=== PATIENT | female | born 1930 | race Caucasian/White ===

== ENCOUNTER → 2017-01-11 | Outpatient (CLI) | payer MEDICARE, OTHER | LOC: OD 17:17 | PROVIDERS: ATTEND Podiatrist Foot Surgery | DX: L02.612 Cutaneous abscess of left foot (principal) | CPT/HCPCS: 87070; 87075; 87077; 87186; 87205 ==

== ENCOUNTER 2017-06-04 16:46 | Observation (INO) | payer MEDICARE, OTHER ==
[2017-06-04 17:46] LABS: ABSOLUTE BASOPHILS # (AUTO) 0.1 10^3/uL (0.0-0.2); ABSOLUTE EOSINOPHILS # (AUTO) 0.4 10^3/uL (0.0-0.6); ABSOLUTE LYMPHOCYTES (AUTO) 2.3 10^3/uL (0.5-4.7); ABSOLUTE MONOCYTES (AUTO) 0.9 10^3/uL (0.1-1.4); EOSINOPHILS % (AUTO) 3.4 % (0-6); HEMATOCRIT 40.4 % (36.0-47.0); HEMOGLOBIN 12.6 g/dL (12.0-15.5); HGB HCT DIFFERENCE -2.6; LYMPHOCYTES % (AUTO) 19.4 % (13-45); MEAN CORPUSCULAR HEMOGLOBIN 27.3 pg (27.0-33.4); MEAN CORPUSCULAR HGB CONC 31.3 g/dL (32.0-36.0); MEAN CORPUSCULAR VOLUME 88 fl (80-97); MONOCYTES % (AUTO) 7.7 % (3-13); RED BLOOD COUNT 4.62 10^6/uL (3.72-5.28); RED CELL DISTRIBUTION WIDTH 15.3 % (11.5-14.0); SEGMENTED NEUTROPHILS % (AUTO) 68.5 % (42-78); WHITE BLOOD COUNT 11.7 10^3/uL (4.0-10.5)
[2017-06-04 18:01] LABS: ALANINE AMINOTRANSFERASE 18 U/L (9-52); ALBUMIN 4.2 g/dL (3.5-5.0); ALKALINE PHOSPHATASE 107 U/L (38-126); ANION GAP 15 (5-19); ASPARTATE AMINO TRANSFERASE 18 U/L (14-36); BILIRUBIN,DIRECT 0.3 mg/dL (0.0-0.4); BILIRUBIN,TOTAL 0.6 mg/dL (0.2-1.3); BLOOD UREA NITROGEN 20 mg/dL (7-20); CALCIUM 9.9 mg/dL (8.4-10.2); CARBON DIOXIDE 22 mmol/L (22-30); CHLORIDE 105 mmol/L (98-107); CREATININE RESULT 1.06 mg/dL (0.52-1.25); GLUCOSE 102 mg/dL (75-110); SODIUM 141.7 mmol/L (137-145); TOTAL PROTEIN 8.1 g/dL (6.3-8.2)
--- NOTE | 2017-06-04 19:41 | PDOC H&P ---
History of Present Illness Admission Date/PCP: 06/04/17 16:46 ABI SILVA DPM History of Present Illness: SAVANA GRIMM is a 86 year old female, she came to the office today for evaluation of redness, swelling of the left lower extremity. She has peripheral vascular disease, she recently underwent atherectomy and angioplasty of the left femoral arterial system. In the office she was evaluated I did not appreciate the pedal pulses she was admitted for evaluation, a stat arterial Doppler was done, Doppler showed adequate arterial doppler flow and there was no need for immediate intervention at this time Past Medical History Cardiac Medical History: Reports: Coronary Artery Disease, Hyperlipidema, Hypertension, Peripheral Vascular Disease Pulmonary Medical History: Reports: Bronchitis - 10 yrs ago, Chronic Obstructive Pulmonary Disease (COPD), Pneumonia - in 2006 GI Medical History: Reports: Gastroesophageal Reflux Disease Musculoskeltal Medical History: Reports: Arthritis Hematology: Denies: Anemia Past Surgical History Past Surgical History: Reports: Cardiac Catheterization - Cardiac stents, Cholecystectomy, Orthopedic Surgery - bilateral carpal tunnel Social History Smoking Status: Former Smoker Frequency of Alcohol Use: Occasional Hx Recreational Drug Use: No Drugs: None Hx Prescription Drug Abuse: No Family History Family History: Reviewed & Not Pertinent Parental Family History Reviewed: Yes Children Family History Reviewed: Yes Sibling(s) Family History Reviewed.: Yes Medication/Allergy Allergies/Adverse Reactions: acetaminophen [From Vicodin] Allergy (Verified 04/07/16 08:36) atorvastatin calcium [From Lipitor] Allergy (Verified 04/07/16 08:37) hydrocodone bitartrate [From Vicodin] Allergy (Verified 04/07/16 08:36) Review of Systems Constitutional: ABSENT: chills, fever(s), headache(s), weight gain, weight loss Eyes: ABSENT: visual disturbances Ears: ABSENT: hearing changes Cardiovascular: ABSENT: chest pain, dyspnea on exertion, edema, orthropnea, palpitations Respiratory: ABSENT: cough, hemoptysis Gastrointestinal: ABSENT: abdominal pain, constipation, diarrhea, hematemesis, hematochezia, nausea, vomiting Genitourinary: ABSENT: dysuria, hematuria Musculoskeletal: ABSENT: joint swelling Integumentary: ABSENT: rash, wounds Neurological: ABSENT: abnormal gait, abnormal speech, confusion, dizziness, focal weakness, syncope Psychiatric: ABSENT: anxiety, depression, homidical ideation, suicidal ideation Endocrine: ABSENT: cold intolerance, heat intolerance, menstrual abnormalities, polydipsia, polyuria Hematologic/Lymphatic: ABSENT: easy bleeding, easy bruising, lymphadenopathy Physical Exam General appearance: PRESENT: no acute distress, well-developed, well-nourished Head exam: PRESENT: atraumatic, normocephalic Eye exam: PRESENT: conjunctiva pink, EOMI, PERRLA. ABSENT: scleral icterus Ear exam: PRESENT: normal external ear exam Mouth exam: PRESENT: moist, tongue midline Neck exam: PRESENT: full ROM. ABSENT: carotid bruit, JVD, lymphadenopathy, thyromegaly Cardiovascular exam: PRESENT: RRR, +S1, +S2 Pulses: PRESENT: other - pedal pulse not appreciated Vascular exam: PRESENT: other - redness of the left leg GI/Abdominal exam: PRESENT: normal bowel sounds, soft. ABSENT: distended, guarding, mass, organolmegaly, rebound, tenderness Rectal exam: PRESENT: deferred Extremities exam: PRESENT: pedal edema Neurological exam: PRESENT: alert, awake, oriented to person, oriented to place , oriented to time, oriented to situation, CN II-XII grossly intact Psychiatric exam: PRESENT: appropriate affect, normal mood Skin exam: PRESENT: dry, intact, warm Results Laboratory Results: 06/04/17 17:30 06/04/17 17:30 06/04/17 06/04/17 17:30 17:30 WBC 11.7 H RBC 4.62 Hgb 12.6 Hct 40.4 MCV 88 MCH 27.3 MCHC 31.3 L RDW 15.3 H Plt Count 438 Seg Neutrophils % 68.5 Lymphocytes % 19.4 Monocytes % 7.7 Eosinophils % 3.4 Basophils % 1.0 Absolute Neutrophils 8.0 Absolute Lymphocytes 2.3 Absolute Monocytes 0.9 Absolute Eosinophils 0.4 Absolute Basophils 0.1 Sodium 141.7 Potassium 4.0 Chloride 105 Carbon Dioxide 22 Anion Gap 15 BUN 20 Creatinine 1.06 Est GFR ( Amer) > 60 Est GFR (Non-Af Amer) 49 L Glucose 102 Calcium 9.9 Total Bilirubin 0.6 AST 18 ALT 18 Alkaline Phosphatase 107 Total Protein 8.1 Albumin 4.2 Assessment & Plan - Diagnosis (1) Peripheral vascular disease Is this a current diagnosis for this admission?: YesPlan: Ischemic left leg was suspected, she was admitted for evaluation doppler that was done was negative
--- NOTE | 2017-06-04 19:44 | PDOC DISCHARGE SUMMARY ---
General - Admit/Disc Date/PCP Admission Date/Primary Care Provider: 06/04/17 16:46 ABI SHIRA Jamshid Discharge Date: 06/04/17 - Discharge Diagnosis (1) Peripheral vascular disease Is this a current diagnosis for this admission?: Yes - Additional Information Discharge Diet: Regular Discharge Activity: Activity As Tolerated History of Present Illness History of Present Illness: SAVANA GRIMM is a 86 year old female, she came to the office today for evaluation of redness, swelling of the left lower extremity. She has peripheral vascular disease, she recently underwent atherectomy and angioplasty of the left femoral arterial system. In the office she was evaluated I did not appreciate the pedal pulses she was admitted for evaluation, a stat arterial Doppler was done, Doppler showed adequate arterial doppler flow and there was no need for immediate intervention at this time Hospital Course Hospital Course: Ischemic left leg was suspected, patient was admitted for observation, a stat arterial Doppler was done, it was negative for occlusion Physical Exam General appearance: PRESENT: no acute distress Head exam: PRESENT: atraumatic, normocephalic Eye exam: PRESENT: conjunctiva pink, EOMI, PERRLA Ear exam: PRESENT: normal external ear exam Mouth exam: PRESENT: moist, tongue midline Neck exam: PRESENT: full ROM Respiratory exam: PRESENT: clear to auscultation julian Cardiovascular exam: PRESENT: RRR, +S1, +S2 GI/Abdominal exam: PRESENT: normal bowel sounds, soft Neurological exam: PRESENT: alert Psychiatric exam: PRESENT: appropriate affect, normal mood Skin exam: PRESENT: dry, intact, warm Results Laboratory Results: 06/04/17 17:30 06/04/17 17:30 06/04/17 06/04/17 17:30 17:30 WBC 11.7 H RBC 4.62 Hgb 12.6 Hct 40.4 MCV 88 MCH 27.3 MCHC 31.3 L RDW 15.3 H Plt Count 438 Seg Neutrophils % 68.5 Lymphocytes % 19.4 Monocytes % 7.7 Eosinophils % 3.4 Basophils % 1.0 Absolute Neutrophils 8.0 Absolute Lymphocytes 2.3 Absolute Monocytes 0.9 Absolute Eosinophils 0.4 Absolute Basophils 0.1 Sodium 141.7 Potassium 4.0 Chloride 105 Carbon Dioxide 22 Anion Gap 15 BUN 20 Creatinine 1.06 Est GFR ( Amer) > 60 Est GFR (Non-Af Amer) 49 L Glucose 102 Calcium 9.9 Total Bilirubin 0.6 AST 18 ALT 18 Alkaline Phosphatase 107 Total Protein 8.1 Albumin 4.2
--- NOTE | 2017-06-06 17:05 | XCELERA REPORT ---
[address] [address] Lower Extremity Arterial Evaluation Name: SAVANA GRIMM Age: 86 yrs Gender: Female : 1930 Patient Status: Inpatient Patient Location: [id number] Study Date: 06/04/2017 06:32 PM Procedure: A color flow and duplex scan of the lower extremity arteries was performed on the left with velocity and waveform anaylsis. Reason For Study: acute ischemic left leg Ordering Physician: CONSUELO NICOLE Performed By: Anaya Gallegos Measurements and Calculations Right Left [employer] PSV 118.7 cm/sec Prox PFA PSV -104.1 cm/sec Prox SFA PSV 83.5 cm/sec Prox Pop A PSV 105.6 cm/sec Dist Pop A PSV 152.7 cm/sec Dist ALEXANDRA PSV 146.7 cm/sec Dist [employer] PSV 23.0 cm/sec Raj Pedis PSV -37.3 28.9 cm/sec Right Side Arterial Evaluation Very limited evaluation, monophasic waveform at the Dorsalis Pedis. Left Side Arterial Evaluation Normal velocity, spectral broadening and biphasic waveforms noted in the Common Femoral artery monophasic with quite reasonably preserved velocities to the infrageniculate vessels. 20-49 % stenosis at the inflow, with sequential disease . Ankle Brachial index was not done. Critical Findings Discussed with Dr Nicole. Interpretation Summary Severe hemodynamically significant lesions in the left lower extremity only, on duplex imaging, at rest. In this patient with recent revascularization, findings may represent improvement. : CONSUELO NICOLE > Lm Gomez
== END 2017-06-04 20:14 | disposition home or self-care (01) ==
LOC: 4N 16:46
PROVIDERS: ADMIT Internal Medicine; ATTEND Internal Medicine
DX: I73.9 Peripheral vascular disease, unspecified (principal); I99.8 Other disorder of circulatory system; I25.10 Atherosclerotic heart disease of native coronary artery without angina pectoris; G25.81 Restless legs syndrome; Z98.62 Peripheral vascular angioplasty status; I10 Essential (primary) hypertension; Z95.5 Presence of coronary angioplasty implant and graft; Z87.891 Personal history of nicotine dependence; Z79.899 Other long term (current) drug therapy; Z79.82 Long term (current) use of aspirin; Z79.02 Long term (current) use of antithrombotics/antiplatelets; Z98.890 Other specified postprocedural states; Z96.641 Presence of right artificial hip joint; Z82.49 Family history of ischemic heart disease and other diseases of the circulatory system
CPT/HCPCS: 36415; 80048; 80076; 85025; 93926

== ENCOUNTER → 2018-12-20 | Outpatient (CLI) | payer MEDICARE, OTHER ==
--- NOTE | 2018-12-20 11:56 | RADIOLOGY REPORT (SQ) ---
EXAM DESCRIPTION: U/S RETROPERITON (RENAL/AORTA) COMPLETED DATE/TIME: 12/20/2018 10:58 am REASON FOR STUDY: ABN KIDNEY FUNCTION STUDIES (R94.4) R94.4 ABNORMAL RESULTS OF KIDNEY FUNCTION ASHA DIES COMPARISON: None. TECHNIQUE: Dynamic and static grayscale images acquired of the kidneys and bladder and recorded on P ACS. Additional selected color Doppler and spectral images recorded. LIMITATIONS: None. FINDINGS: RIGHT KIDNEY: Normal size 10.5 cm. Normal echogenicity. No solid or suspicious masses. No hydronephrosis. No calcifications. LEFT KIDNEY: Smaller than the right, 8.7 cm. Normal echogenicity. No solid or suspicious masses. No hydronephrosis. No calcifications. BLADDER: The bladder is not well filled. OTHER FINDINGS: The liver is quite heterogeneous with what appear to be multiple regenerative nodules versus metastases. IMPRESSION: Kidneys are unremarkable. The left is smaller than the right. The liver is quite heter ogeneous as described. TECHNICAL DOCUMENTATION: JOB ID: [id number] [employer]- All Rights Reserved Reading location - IP/workstation name: [email or web address]
== END ==
LOC: RAD 09:20
PROVIDERS: ATTEND Internal Medicine
DX: R94.4 Abnormal results of kidney function studies (principal)
CPT/HCPCS: 76770

== ENCOUNTER 2018-12-31 10:27 | Inpatient (IN) | payer MEDICARE, OTHER ==
--- NOTE | 2018-12-31 10:50 | ER Document Report ---
ED Medical Screen (RME) - General Chief Complaint: Weakness Stated Complaint: WEAKNESS Time Seen by Provider: 12/31/18 10:49 Primary Care Provider: CONSUELO NICOLE MD [Primary Care Provider] - Follow up as needed TRAVEL OUTSIDE OF THE [place] IN LAST 30 DAYS: No - HPI Notes: 12/31/18 10:49 Coming in for generalized weakness not taking p.o. as normal according to family member recently had a renal ultrasound performed stating something wrong with a kidney syndrome of the liver. I did review this showing possible metastatic disease in the liver. Patient supposed to follow-up on Wednesday for the results. No nausea no vomiting patient otherwise has no complaints is hard of hearing. - Related Data Allergies/Adverse Reactions: acetaminophen [From Vicodin] Allergy (Verified 12/31/18 10:28) atorvastatin calcium [From Lipitor] Allergy (Verified 12/31/18 10:28) hydrocodone bitartrate [From Vicodin] Allergy (Verified 12/31/18 10:28) Past Medical History - Past Medical History Cardiac Medical History: Reports: Hx Coronary Artery Disease, Hx Hypercholestero lemia, Hx Hypertension, Hx Peripheral Vascular Disease Pulmonary Medical History: Reports: Hx Bronchitis - 10 yrs ago, Hx COPD, Hx Pneumonia - in 2006 Neurological Medical History: Denies: Hx Cerebrovascular Accident Renal/ Medical History: Reports: Hx Ovarian Cysts. Denies: Hx Peritoneal Dialysis GI Medical History: Reports: Hx Gastroesophageal Reflux Disease Musculoskeltal Medical History: Reports Hx Arthritis Psychiatric Medical History: Denies: Hx Depression Past Surgical History: Reports: Hx Cardiac Catheterization - Cardiac stents, Hx Cholecystectomy, Hx Orthopedic Surgery - bilateral carpal tunnel. Denies: Hx Hysterectomy, Hx Pacemaker - Immunizations Hx Diphtheria, Pertussis, Tetanus Vaccination: No Review of Systems - Review of Systems Constitutional: Weakness Physical Exam - Vital signs Vitals: Temp Pulse Resp BP Pulse Ox 98.4 F 86 22 H 128/44 H 93 12/31/18 10:36 12/31/18 10:36 12/31/18 10:36 12/31/18 10:36 12/31/18 10:36 - Respiratory Respiratory status: No respiratory distress Chest status: Nontender Breath sounds: Normal Chest palpation: Normal Course - Vital Signs Vital signs: Temp Pulse Resp BP Pulse Ox 98.4 F 86 22 H 128/44 H 93 12/31/18 10:36 12/31/18 10:36 12/31/18 10:36 12/31/18 10:36 12/31/18 10:36 Doctor's Discharge - Discharge Referrals: CONSUELO NICOLE MD [Primary Care Provider] - Follow up as needed
[2018-12-31] MEDS ORDERED: NORMAL SALINE 1000 ML 1,000 ML IV ONE ×3 (10:51→14:49)
[2018-12-31] MEDS ORDERED: LEVOFLOXACIN 750 MG/D5W RTU 750 MG/150 ML RTUPB IV ONE (11:33)
[2018-12-31 12:09] LABS: ABSOLUTE BASOPHILS # (AUTO) 0.1 10^3/uL (0.0-0.2); ABSOLUTE EOSINOPHILS # (AUTO) 0.2 10^3/uL (0.0-0.6); ABSOLUTE LYMPHOCYTES (AUTO) 1.5 10^3/uL (0.5-4.7); ABSOLUTE MONOCYTES (AUTO) 1.4 10^3/uL (0.1-1.4); ABSOLUTE NEUT (AUTO) 10.2 10^3/uL (1.7-8.2); BASOPHILS % (AUTO) 0.8 % (0-2); EOSINOPHILS % (AUTO) 1.3 % (0-6); HEMATOCRIT 42.8 % (36.0-47.0); HEMOGLOBIN 14.2 g/dL (12.0-15.5); LYMPHOCYTES % (AUTO) 11.1 % (13-45); MEAN CORPUSCULAR HEMOGLOBIN 30.7 pg (27.0-33.4); MEAN CORPUSCULAR HGB CONC 33.1 g/dL (32.0-36.0); MEAN CORPUSCULAR VOLUME 93 fl (80-97); MONOCYTES % (AUTO) 10.2 % (3-13); PLATELET COUNT 297 10^3/uL (150-450); RED BLOOD COUNT 4.62 10^6/uL (3.72-5.28); RED CELL DISTRIBUTION WIDTH 17.2 % (11.5-14.0); SEGMENTED NEUTROPHILS % (AUTO) 76.6 % (42-78); TOTAL CELLS COUNTED % (AUTO) 100 %; WHITE BLOOD COUNT 13.3 10^3/uL (4.0-10.5)
[2018-12-31 12:28] LABS: ALANINE AMINOTRANSFERASE 59 U/L (9-52); ALBUMIN 4.1 g/dL (3.5-5.0); ALKALINE PHOSPHATASE 408 U/L (38-126); ANION GAP 13 (5-19); ASPARTATE AMINO TRANSFERASE 293 U/L (14-36); BILIRUBIN,DIRECT 0.6 mg/dL (0.0-0.4); BLOOD UREA NITROGEN 49 mg/dL (7-20); CALCIUM 9.8 mg/dL (8.4-10.2); CARBON DIOXIDE 22 mmol/L (22-30); CHLORIDE 107 mmol/L (98-107); CREATINE KINASE 101 U/L (30-135); GLUCOSE 164 mg/dL (75-110); POTASSIUM 5.8 mmol/L (3.6-5.0); SODIUM 142.4 mmol/L (137-145)
[2018-12-31 12:38] LABS: CREATINE KINASE MB 1.05 ng/mL (<4.55)
[2018-12-31 12:45] LABS: TROPONIN I 0.045 ng/mL
--- NOTE | 2018-12-31 12:49 | RADIOLOGY REPORT (SQ) ---
EXAM DESCRIPTION: CHEST SINGLE VIEW COMPLETED DATE/TIME: 12/31/2018 12:26 pm REASON FOR STUDY: weakness COMPARISON: 01/27/2016 EXAM PARAMETERS: NUMBER OF VIEWS: One view. TECHNIQUE: Single frontal radiographic view of the chest acquired. RADIATION DOSE: NA LIMITATIONS: None. FINDINGS: LUNGS AND PLEURA: 5 cm probable mass lesion in the right lung. Calcified granulomata. Le ft lung clear. MEDIASTINUM AND HILAR STRUCTURES: No masses. Contour normal. HEART AND VASCULAR STRUCTURES: Heart normal in size. Normal vasculature. BONES: No acute findings. HARDWARE: None in the chest. OTHER: No other significant finding. IMPRESSION: 5 cm probable mass in the right lung not seen previously. No definite acute opacities. COMMENT: Recommend CT chest. TECHNICAL DOCUMENTATION: JOB ID: [id number] [employer]- All Rights Reserved Reading location - IP/workstation name: [email or web address]
[2018-12-31] MEDS ORDERED: HYDROMORPHONE HCL INJ/PF 2 MG/ML AMPULE IV ONE (14:23)
[2018-12-31] MEDS ORDERED: ONDANSETRON HCL INJ/PF 4 MG/2 ML SDV IV ONE (14:23)
[2018-12-31 15:27] LABS: APPEARANCE,URINE SLIGHTLY-CLOUDY; BILIRUBIN,URINE NEGATIVE (NEGATIVE); COLOR,URINE AMBER; GLUCOSE, URINE NEGATIVE (NEGATIVE); KETONES,URINE NEGATIVE (NEGATIVE); LEUKOCYTE ESTERASE,URINE NEGATIVE (NEGATIVE); NITRITE,URINE NEGATIVE (NEGATIVE); PROTEIN,URINE 30 mg/dL (NEGATIVE); URINE SPECIFIC GRAVITY 1.017
--- NOTE | 2018-12-31 15:38 | ER Document Report ---
Entered by GUILLERMO VIDES SCRIBE 12/31/18 1247 Acting as scribe for:PAM WILSON MD ED General - General Chief Complaint: Weakness Stated Complaint: WEAKNESS Time Seen by Provider: 12/31/18 10:49 Primary Care Provider: CONSUELO NICOLE MD [Primary Care Provider] - Follow up as needed Mode of Arrival: Wheelchair Information source: Patient, Relative Notes: Patient is an 88 year old female with PVD, chronic kidney disease, hypertension, hyperglycemia, CAD presents to the emergency department accompanied by daughter complaining of generalized malaise and weakness for 2 weeks. Daughter at bedside states the patient has not wanted to take care of herself, she hasn't been eating or drinking like normal, getting or hair done or putting her hearing aids in. Upon returning to the room after being called away, daughter states the patient already seems perkier. Patient had received approximately 1 L of fluid. Daughter states the patient recently diagnosed with chronic kidney disease and had a renal ultrasound performed 4 days ago. Patient's report showed her kidneys were unremarkable. The liver had a heterogeneous appearance with multiple regenerative nodules versus metastatic disease. TRAVEL OUTSIDE OF THE [place] IN LAST 30 DAYS: No - Related Data Allergies/Adverse Reactions: acetaminophen [From Vicodin] Allergy (Verified 12/31/18 10:28) atorvastatin calcium [From Lipitor] Allergy (Verified 12/31/18 10:28) hydrocodone bitartrate [From Vicodin] Allergy (Verified 12/31/18 10:28) Past Medical History - General Information source: Patient, Relative - Social History Smoking Status: Former Smoker Cigarette use (# per day): No Chew tobacco use (# tins/day): No Smoking Education Provided: No Family History: Reviewed & Not Pertinent Patient has suicidal ideation: No Patient has homicidal ideation: No - Past Medical History Cardiac Medical History: Reports: Hx Coronary Artery Disease, Hx Hypercholesterolemia, Hx Hypertension, Hx Peripheral Vascular Disease Pulmonary Medical History: Reports: Hx Bronchitis - 10 yrs ago, Hx COPD, Hx Pneumonia - in 2006 Renal/ Medical History: Reports: Hx Ovarian Cysts GI Medical History: Reports: Hx Gastroesophageal Reflux Disease Musculoskeletal Medical History: Reports Hx Arthritis Past Surgical History: Reports: Hx Cardiac Catheterization - Cardiac stents, Hx Cholecystectomy, Hx Orthopedic Surgery - bilateral carpal tunnel - Immunizations Hx Diphtheria, Pertussis, Tetanus Vaccination: No Hx Pneumococcal Vaccination: 06/14/12 Review of Systems - Review of Systems Constitutional: See HPI, Malaise, Weakness EENT: No symptoms reported Cardiovascular: No symptoms reported Respiratory: No symptoms reported Gastrointestinal: See HPI, Poor appetite, Poor fluid intake Genitourinary: No symptoms reported Female Genitourinary: No symptoms reported Musculoskeletal: No symptoms reported Skin: No symptoms reported Hematologic/Lymphatic: No symptoms reported Neurological/Psychological: No symptoms reported -: Yes All other systems reviewed and negative Physical Exam - Vital signs Vitals: Temp Pulse Resp BP Pulse Ox 98.4 F 86 22 H 128/44 H 93 12/31/18 10:36 12/31/18 10:36 12/31/18 10:36 12/31/18 10:36 12/31/18 10:36 - Notes Notes: GENERAL: Alert, interacts well. No acute distress. HEAD: Normocephalic, atraumatic. EYES: Pupils equal, round, and reactive to light. Extraocular movements intact. ENT: Oral mucosa moist, tongue midline. NECK: Full range of motion. Supple. Trachea midline. LUNGS: Rhonchi with cough. No respiratory distress. HEART: Regular rate. 2/6 systolic murmur. ABDOMEN: Soft, non-tender. Non-distended. Bowel sounds present in all 4 quadrants. EXTREMITIES: Moves all 4 extremities spontaneously. Bruise left forearm. NEUROLOGICAL: Alert and oriented x3. Normal speech. PSYCH: Normal affect, normal mood. SKIN: Warm, dry, normal turgor. No rashes or lesions noted. Course - Re-evaluation Re-evalutation: 12/31/18 14:50 After 2 L IV fluids, the patient has still not urinated. She will be given additional liter of fluid, and a Rose catheter so we can get a urinalysis and monitor her urine output. 12/31/18 14:52 The patient's BUN and creatinine are much higher than her last lab work in our system which was from September 2017. The chest x-ray shows a 5 cm right lower lobe mass which is new since the most recent radiological studies in our system that were done in September 2016. The liver enzymes are elevated today compared to the most recent studies, and the recent renal ultrasound suggested the possibility of metastatic liver disease. - Vital Signs Vital signs: Temp Pulse Resp BP Pulse Ox 98.4 F 86 19 118/42 L 93 12/31/18 10:36 12/31/18 10:36 12/31/18 15:01 12/31/18 15:01 12/31/18 15:01 - Laboratory Result Diagrams: 12/31/18 11:52 12/31/18 11:52 Laboratory results interpreted by me: 12/31/18 12/31/18 12/31/18 11:52 11:52 15:00 WBC 13.3 H RDW 17.2 H Lymphocytes % 11.1 L Absolute Neutrophils 10.2 H Potassium 5.8 H BUN 49 H Creatinine 1.73 H Est GFR ( Amer) 34 L Est GFR (Non-Af Amer) 28 L Glucose 164 H Direct Bilirubin 0.6 H AST 293 H ALT 59 H Alkaline Phosphatase 408 H Urine Protein 30 H Urine Urobilinogen 2.0 H Urine Ascorbic Acid 40 H - Diagnostic Test Radiology reviewed: Image reviewed, Reports reviewed - 5 cm right lower lung mass, new since September 2016. - EKG Interpretation by Me EKG shows normal: Sinus rhythm, [place], Intervals, QRS Complexes. abnormal: ST-T Waves - Anterolateral ST depression Rate: Normal - 76 Rhythm: NSR [place]/QRS: IVCD - Consults Dr. Beatty Time consulted: 14:45 Consulted provider: will see as inpatient Critical Care Note - Critical Care Note Total time excluding time spent on procedures (mins): 40 Discharge - Discharge Clinical Impression: Dehydration, Malaise and fatigue, Hyperkalemia, Right lower lobe lung mass, Elevated liver function tests, Abnormal ultrasound of liver Hypotension Qualifiers: Hypotension type: unspecified hypotension type Qualified Code(s): I95.9 - Hypotension, unspecified Condition: Stable Disposition: ADMITTED OBSERVATION Admitting Provider: Heaml Beatty covering Unit Admitted: Telemetry Referrals: CONSUELO NICOLE MD [Primary Care Provider] - Follow up as needed Scribe Attestation: 12/31/18 14:52 I personally performed the services described in the documentation, reviewed and edited the documentation which was dictated to the scribe in my presence, and it accurately records my words and actions. I personally performed the services described in the documentation, reviewed and edited the documentation which was dictated to the scribe in my presence, and it accurately records my words and actions.
--- NOTE | 2018-12-31 17:10 | EKG REPORT ---
SEVERITY:- ABNORMAL ECG - SINUS RHYTHM NONSPECIFIC INTRAVENTRICULAR CONDUCTION DELAY ST DEPRESSION, CONSIDER ISCHEMIA, ANT-LAT LDS : Confirmed by: Ugo Perry MD 31-Dec-2018 17:10:03
--- NOTE | 2018-12-31 18:34 | PDOC H&P ---
History of Present Illness Admission Date/PCP: 12/31/18 15:40 CONSUELO NICOLE MD History of Present Illness: SAVANA GRIMM is a 88 year old female patient of Dr Nicole who presented to the ED with her daughter complaining about poor oral intake including food and water over last two weeks. Daughter described self neglect behavior, weakness, and fatigue. Patient was recently diagnosed with chronic kidney disease and her Ultrasound evaluation suggested normal renal structure but incidental findings include liver lesions suggestive of metastases versus regenerative nodules. Her evaluation revealed hyperkalemia, pre-renal azotemia, abnormal urinalysis, and newly identified right lung mass. Her morbidities include Hypertension, Coronary Artery Disease, Hyperlipidemia, Peripheral Vascular Disease, COPD, GERD, Osteoarthritis, or Ovarian cysts. Past Medical History Cardiac Medical History: Reports: Coronary Artery Disease, Hyperlipidema, Hypertension, Peripheral Vascular Disease Pulmonary Medical History: Reports: Bronchitis - 10 yrs ago, Chronic Obstructive Pulmonary Disease (COPD), Pneumonia - in 2006 GI Medical History: Reports: Gastroesophageal Reflux Disease Musculoskeltal Medical History: Reports: Arthritis Psychiatric Medical History: Denies: Depression Hematology: Denies: Anemia Past Surgical History Past Surgical History: Reports: Cardiac Catheterization - Cardiac stents, Cholecystectomy, Orthopedic Surgery - bilateral carpal tunnel Denies: Hysterectomy, Pacemaker Social History Smoking Status: Former Smoker Frequency of Alcohol Use: Occasional Hx Recreational Drug Use: No Drugs: None Hx Prescription Drug Abuse: No - Advance Directive Resuscitation Status: Do Not Resuscitate Family History Family History: Reviewed & Not Pertinent Parental Family History Reviewed: Yes Children Family History Reviewed: Yes Sibling(s) Family History Reviewed.: Yes Medication/Allergy Allergies/Adverse Reactions: acetaminophen [From Vicodin] Allergy (Verified 12/31/18 10:28) atorvastatin calcium [From Lipitor] Allergy (Verified 12/31/18 10:28) hydrocodone bitartrate [From Vicodin] Allergy (Verified 12/31/18 10:28) Review of Systems Constitutional: PRESENT: anorexia, fatigue, weakness Eyes: PRESENT: visual disturbances Ears: PRESENT: hearing changes Nose, Mouth, and Throat: ABSENT: as per HPI, headache(s), mouth pain, sore throat, vertigo, other Cardiovascular: PRESENT: dyspnea on exertion. ABSENT: as per HPI, chest pain, edema, orthropnea, palpitations, other Respiratory: PRESENT: dyspnea. ABSENT: as per HPI, cough, hemoptysis, sputum, other Gastrointestinal: ABSENT: abdominal pain, constipation, diarrhea, hematemesis, hematochezia, nausea, vomiting Genitourinary: ABSENT: dysuria, hematuria Musculoskeletal: PRESENT: muscle weakness - generalized Integumentary: ABSENT: rash, wounds Neurological: PRESENT: weakness - generalized.. ABSENT: abnormal gait, abnormal speech, confusion, dizziness, focal weakness, syncope Psychiatric: ABSENT: anxiety, depression, homidical ideation, suicidal ideation Endocrine: ABSENT: cold intolerance, heat intolerance, polydipsia, polyuria Hematologic/Lymphatic: ABSENT: easy bleeding, easy bruising, lymphadenopathy Allergic/Immunologic: ABSENT: seasonal rhinorrhea Physical Exam Vital Signs: Temp Pulse Resp BP Pulse Ox 98.4 F 86 19 105/60 94 12/31/18 10:36 12/31/18 10:36 12/31/18 15:01 12/31/18 16:01 12/31/18 16:45 Intake & Output 12/30/18 12/31/18 01/01/19 06:59 06:59 06:59 Intake Total 3000 Balance 3000 Weight 57.3 kg General appearance: PRESENT: no acute distress, well-developed, well-nourished Head exam: PRESENT: atraumatic, normocephalic Eye exam: PRESENT: conjunctiva pink, EOMI, PERRLA. ABSENT: scleral icterus Ear exam: PRESENT: normal external ear exam Mouth exam: PRESENT: dry mucosa Neck exam: PRESENT: full ROM. ABSENT: carotid bruit, JVD, lymphadenopathy, thyromegaly Respiratory exam: PRESENT: decreased breath sounds - at lung bases and right lower zone, rhonchi - expiratory phase Cardiovascular exam: PRESENT: RRR. ABSENT: diastolic murmur, rubs, systolic murmur Vascular exam: PRESENT: normal capillary refill. ABSENT: pallor GI/Abdominal exam: PRESENT: normal bowel sounds, soft. ABSENT: distended, guarding, mass, organolmegaly, rebound, tenderness Rectal exam: PRESENT: deferred Extremities exam: ABSENT: pedal edema Musculoskeletal exam: PRESENT: deformity - related to multiple joints involveme nt with arthritis Neurological exam: PRESENT: alert - and appropriate in responses, awake, oriented to person, oriented to place, oriented to time, oriented to situation Psychiatric exam: PRESENT: appropriate affect, normal mood. ABSENT: homicidal i deation, suicidal ideation Skin exam: PRESENT: dry, warm, other - resolving multiple areas of ecchymosis on lower extremities Results Laboratory Results: 12/31/18 11:52 12/31/18 11:52 12/31/18 12/31/18 12/31/18 11:52 11:52 15:00 WBC 13.3 H RBC 4.62 Hgb 14.2 Hct 42.8 MCV 93 MCH 30.7 MCHC 33.1 RDW 17.2 H Plt Count 297 Seg Neutrophils % 76.6 Lymphocytes % 11.1 L Monocytes % 10.2 Eosinophils % 1.3 Basophils % 0.8 Absolute Neutrophils 10.2 H Absolute Lymphocytes 1.5 Absolute Monocytes 1.4 Absolute Eosinophils 0.2 Absolute Basophils 0.1 Sodium 142.4 Potassium 5.8 H Chloride 107 Carbon Dioxide 22 Anion Gap 13 BUN 49 H Creatinine 1.73 H Est GFR ( Amer) 34 L Est GFR (Non-Af Amer) 28 L Glucose 164 H Calcium 9.8 Magnesium 1.8 Total Bilirubin 1.0 AST 293 H ALT 59 H Alkaline Phosphatase 408 H Total Protein 7.0 Albumin 4.1 Urine Color [place] Urine Appearance SLIGHTLY-CLOUDY Urine pH 5.0 Ur Specific [place] 1.017 Urine Protein 30 H Urine Glucose (UA) NEGATIVE Urine Ketones NEGATIVE Urine Blood NEGATIVE Urine Nitrite NEGATIVE Ur Leukocyte Esterase NEGATIVE Urine WBC (Auto) 2 Urine RBC (Auto) 0 12/31/18 12/31/18 12/31/18 11:52 11:52 15:10 Creatine Kinase 101 CK-MB (CK-2) 1.05 Troponin I 0.045 0.038 Impressions: Chest X-Ray 12/31/18 10:50 IMPRESSION: 5 cm probable mass in the right lung not seen previously. No definite acute opacities. Assessment & Plan - Diagnosis (1) Dehydration Is this a current diagnosis for this admission?: Yes Plan: Patient will be rehydrated. Remain on IV N/S infusion. Obtain CMP in AM. (2) Hyperkalemia Is this a current diagnosis for this admission?: Yes Plan: Monitor serum K+ level response to hydration. (3) Malaise and fatigue Is this a current diagnosis for this admission?: Yes Plan: Emphasized need to improve oral intake. Add oral supplementation. (4) Right lower lobe lung mass Is this a current diagnosis for this admission?: Yes Plan: Obtain CT chest with contrast after improvement in renal function status and adequate IV hydration treatment for further evaluation and management. with US liver findings, most likely metastases from lung cancer. (5) COPD (chronic obstructive pulmonary disease) Qualifiers: COPD type: unspecified COPD Qualified Code(s): J44.9 - Chronic obstructive pulmonary disease, unspecified Is this a current diagnosis for this admission?: Yes Plan: Start on DuoNeb 1 unit dose q4 hours prn for wheezing (6) Hypertension Qualifiers: Hypertension type: essential hypertension Qualified Code(s): I10 - Essential (primary) hypertension Is this a current diagnosis for this admission?: Yes Plan: Monitor blood pressure and intervene as needed. (7) Coronary artery disease Qualifiers: Coronary Disease-Associated Artery/Lesion type: [place] artery [place] vs. transplanted heart: [place] heart Associated angina: with unspecified angina Qualified Code(s): I25.119 - Atherosclerotic heart disease of [place] coronary artery with unspecified angina pectoris Is this a current diagnosis for this admission?: Yes Plan: Maintain on current supportive care. (8) Peripheral vascular disease Is this a current diagnosis for this admission?: Yes Plan: Maintain on current supportive care - Time Time Spent: 50 to 70 Minutes Medications reviewed and adjusted accordingly: Yes Anticipated discharge: Home with Homehealth Within: Other - Inpatient Certification Based on my medical assessment, after consideration of the patient's comorbidities, presenting symptoms, or acuity I expect that the services needed warrant INPATIENT care.: Yes I certify that my determination is in accordance with my understanding of Medicare's requirements for reasonable and necessary INPATIENT services [42 CFR 412.3e].: Yes Medical Necessity: Significant Comorbidiites Make Outpatient Treatment Too Risky, Need Close Monitoring Due to Risk of Patient Decompensation, Need For IV Fluids, Need For Continuous Telemetry Monitoring, Need for Nebulizer Therapy and Monitoring of Response, Risk of Complication if Not Cared For in Hospital, Risk of Diagnosis Which Will Require Inpatient Eval/Care/Monitoring Post Hospital Care: D/C [employer] Consultant Documentation - Plan Summary Plan Summary: See covering admitting attending physician orders as per above outlined care plan. Patient will be on DNR status as per her and family decision after extensive discussion.
[2019-01-01] MEDS: LANSOPRAZOLE 30 MG TAB.RAP.DR PO SCH (06:00)
[2019-01-01 06:57] LABS: ABSOLUTE EOSINOPHILS # (AUTO) 0.1 10^3/uL (0.0-0.6); ABSOLUTE LYMPHOCYTES (AUTO) 1.1 10^3/uL (0.5-4.7); ABSOLUTE MONOCYTES (AUTO) 1.2 10^3/uL (0.1-1.4); ABSOLUTE NEUT (AUTO) 9.8 10^3/uL (1.7-8.2); BASOPHILS % (AUTO) 0.3 % (0-2); HEMATOCRIT 36.2 % (36.0-47.0); LYMPHOCYTES % (AUTO) 9.2 % (13-45); MEAN CORPUSCULAR HEMOGLOBIN 30.4 pg (27.0-33.4); MEAN CORPUSCULAR HGB CONC 32.3 g/dL (32.0-36.0); MEAN CORPUSCULAR VOLUME 94 fl (80-97); MONOCYTES % (AUTO) 9.7 % (3-13); PLATELET COUNT 218 10^3/uL (150-450); RED BLOOD COUNT 3.85 10^6/uL (3.72-5.28); RED CELL DISTRIBUTION WIDTH 17.1 % (11.5-14.0); SEGMENTED NEUTROPHILS % (AUTO) 79.8 % (42-78); TOTAL CELLS COUNTED % (AUTO) 100 %; WHITE BLOOD COUNT 12.3 10^3/uL (4.0-10.5)
[2019-01-01 07:03] LABS: HEMOGLOBIN 11.7 g/dL (12.0-15.5)
[2019-01-01 07:18] LABS: ALANINE AMINOTRANSFERASE 53 U/L (9-52); ALBUMIN 2.9 g/dL (3.5-5.0); ALKALINE PHOSPHATASE 301 U/L (38-126); ANION GAP 8 (5-19); ASPARTATE AMINO TRANSFERASE 185 U/L (14-36); BILIRUBIN,DIRECT 0.4 mg/dL (0.0-0.4); BILIRUBIN,TOTAL 0.6 mg/dL (0.2-1.3); BLOOD UREA NITROGEN 45 mg/dL (7-20); CALCIUM 8.1 mg/dL (8.4-10.2); CARBON DIOXIDE 18 mmol/L (22-30); CHLORIDE 116 mmol/L (98-107); GLUCOSE 100 mg/dL (75-110); SODIUM 142.2 mmol/L (137-145); TOTAL PROTEIN 5.4 g/dL (6.3-8.2)
[2019-01-01 07:39] LABS: POTASSIUM 6.5 mmol/L (3.6-5.0)
[2019-01-01] MEDS ORDERED: SODIUM POLYSTYRENE SULFONATE 15 GM/60 ML PO ONE (09:30)
[2019-01-01] MEDS ORDERED: PATIROMER 8.4 GM SUSP PACKET PO ONE ×2 (10:00→15:30)
[2019-01-01] MEDS: ENOXAPARIN SODIUM INJ 30 MG/0.3 ML DISP.SYRIN SUBCUT SCH (10:05)
[2019-01-01] MEDS: LEVOFLOXACIN 250 MG/D5W RTU 250 MG/50 ML RTUPB IV SCH (10:07)
[2019-01-01] MEDS ORDERED: NORMAL SALINE 500 ML IV ONE (14:00)
--- NOTE | 2019-01-01 14:11 | PDOC PROGRESS REPORT ---
Subjective Progress Note for:: 01/01/19 Subjective:: Patient continue to demonstrate episodes of confusion. Her po intake remain poor. No abdominal pain, nausea or vomiting. No fever. Reason For Visit: HYPERKALEMIA,DEHYDRATION,RIGHT LUNG MASS,FATIGUE Physical Exam Vital Signs: Temp Pulse Resp BP Pulse Ox 98.0 F 78 20 87/34 L 92 01/01/19 11:06 01/01/19 11:06 01/01/19 11:06 01/01/19 11:06 01/01/19 11:06 Intake & Output 12/31/18 01/01/19 01/02/19 06:59 06:59 06:59 Intake Total 3050 Output Total 100 Balance 2950 Weight 55.915 kg General appearance: PRESENT: no acute distress Head exam: PRESENT: atraumatic, normocephalic Ear exam: PRESENT: normal external ear exam Mouth exam: PRESENT: moist Respiratory exam: PRESENT: clear to auscultation julian, decreased breath sounds - at lung bases Cardiovascular exam: PRESENT: RRR. ABSENT: diastolic murmur, rubs, systolic murmur Vascular exam: ABSENT: pallor GI/Abdominal exam: PRESENT: normal bowel sounds, soft. ABSENT: distended, guarding, mass, organolmegaly, rebound, tenderness Extremities exam: ABSENT: pedal edema Neurological exam: PRESENT: alert, awake Skin exam: PRESENT: dry, warm Results Laboratory Results: 01/01/19 06:17 01/01/19 06:17 12/31/18 01/01/19 01/01/19 15:00 06:17 06:17 WBC 12.3 H RBC 3.85 Hgb 11.7 L D Hct 36.2 MCV 94 MCH 30.4 MCHC 32.3 RDW 17.1 H Plt Count 218 Seg Neutrophils % 79.8 H Lymphocytes % 9.2 L Monocytes % 9.7 Eosinophils % 1.0 Basophils % 0.3 Absolute Neutrophils 9.8 H Absolute Lymphocytes 1.1 Absolute Monocytes 1.2 Absolute Eosinophils 0.1 Absolute Basophils 0.0 Sodium 142.2 Potassium 6.5 H* Chloride 116 H Carbon Dioxide 18 L Anion Gap 8 BUN 45 H Creatinine 2.33 H Est GFR ( Amer) 24 L Est GFR (Non-Af Amer) 20 L Glucose 100 Calcium 8.1 L Total Bilirubin 0.6 AST 185 H ALT 53 H Alkaline Phosphatase 301 H Total Protein 5.4 L Albumin 2.9 L Urine Color TRE[place] Urine Appearance SLIGHTLY-CLOUDY Urine pH 5.0 Ur Specific [place] 1.017 Urine Protein 30 H Urine Glucose (UA) NEGATIVE Urine Ketones NEGATIVE Urine Blood NEGATIVE Urine Nitrite NEGATIVE Ur Leukocyte Esterase NEGATIVE Urine WBC (Auto) 2 Urine RBC (Auto) 0 12/31/18 12/31/18 12/31/18 11:52 11:52 15:10 Creatine Kinase 101 CK-MB (CK-2) 1.05 Troponin I 0.045 0.038 Impressions: Chest X-Ray 12/31/18 10:50 IMPRESSION: 5 cm probable mass in the right lung not seen previously. No defi nite acute opacities. Assessment & Plan - Diagnosis (1) Dehydration Is this a current diagnosis for this admission?: Yes (2) Hyperkalemia Is this a current diagnosis for this admission?: Yes (3) Malaise and fatigue Is this a current diagnosis for this admission?: Yes (4) Right lower lobe lung mass Is this a current diagnosis for this admission?: Yes (5) COPD (chronic obstructive pulmonary disease) Qualifiers: COPD type: unspecified COPD Qualified Code(s): J44.9 - Chronic obstructive pulmonary disease, unspecified Is this a current diagnosis for this admission?: Yes (6) Hypertension Qualifiers: Hypertension type: essential hypertension Qualified Code(s): I10 - Essential (primary) hypertension Is this a current diagnosis for this admission?: Yes (7) Coronary artery disease Qualifiers: Coronary Disease-Associated Artery/Lesion type: [place] artery [place] vs. transplanted heart: [place] heart Associated angina: with unspecified angina Qualified Code(s): I25.119 - Atherosclerotic heart disease of [place] coronary artery with unspecified angina pectoris Is this a current diagnosis for this admission?: Yes (8) Peripheral vascular disease Is this a current diagnosis for this admission?: Yes - Time Time Spent with patient: 25-34 minutes Medications reviewed and adjusted accordingly: Yes Anticipated discharge: Home with Homehealth Within: Other - Inpatient Certification Based on my medical assessment, after consideration of the patient's comorbidities, presenting symptoms, or acuity I expect that the services needed warrant INPATIENT care.: Yes I certify that my determination is in accordance with my understanding of Medicare's requirements for reasonable and necessary INPATIENT services [42 CFR 412.3e].: Yes Medical Necessity: Need Close Monitoring Due to Risk of Patient Decompensation, Need For IV Fluids, Need For Continuous Telemetry Monitoring, Risk of Complicat ion if Not Cared For in Hospital Post Hospital Care: D/C Associate Professor Of Literacy Documentation - Plan Summary Plan Summary: Start on oral Veltassa therapy for hyperkalemia. Repeat BMP at 6pm. D/C Ensure supplementation due to potassium content. IV N/S bolus 500 ml and thereafter maintain at 100 ml/hour. Follow up on CT chest with contrast when her renal issues improved. Patient remain on DNR status. I stevenson change her status to full inpatient in view of her worsening hyperkalemia and renal indices.
[2019-01-01 19:13] LABS: ANION GAP 8 (5-19); BLOOD UREA NITROGEN 45 mg/dL (7-20); CALCIUM 7.9 mg/dL (8.4-10.2); CARBON DIOXIDE 19 mmol/L (22-30); CHLORIDE 115 mmol/L (98-107); GLUCOSE 104 mg/dL (75-110); POTASSIUM 5.8 mmol/L (3.6-5.0); SODIUM 141.5 mmol/L (137-145)
[2019-01-01] MEDS: NORMAL SALINE 1000 ML 1,000 ML IV PRN (21:44)
[2019-01-02 04:48] LABS: ABSOLUTE BASOPHILS # (AUTO) 0.1 10^3/uL (0.0-0.2); ABSOLUTE EOSINOPHILS # (AUTO) 0.2 10^3/uL (0.0-0.6); ABSOLUTE LYMPHOCYTES (AUTO) 1.8 10^3/uL (0.5-4.7); ABSOLUTE MONOCYTES (AUTO) 1.8 10^3/uL (0.1-1.4); ABSOLUTE NEUT (AUTO) 9.6 10^3/uL (1.7-8.2); BASOPHILS % (AUTO) 0.5 % (0-2); EOSINOPHILS % (AUTO) 1.8 % (0-6); HEMATOCRIT 36.6 % (36.0-47.0); HEMOGLOBIN 11.9 g/dL (12.0-15.5); LYMPHOCYTES % (AUTO) 13.4 % (13-45); MEAN CORPUSCULAR HGB CONC 32.5 g/dL (32.0-36.0); MEAN CORPUSCULAR VOLUME 96 fl (80-97); PLATELET COUNT 208 10^3/uL (150-450); RED BLOOD COUNT 3.83 10^6/uL (3.72-5.28); RED CELL DISTRIBUTION WIDTH 17.8 % (11.5-14.0); SEGMENTED NEUTROPHILS % (AUTO) 71.3 % (42-78); TOTAL CELLS COUNTED % (AUTO) 100 %; WHITE BLOOD COUNT 13.5 10^3/uL (4.0-10.5)
[2019-01-02] MEDS: LANSOPRAZOLE 30 MG TAB.RAP.DR PO SCH (05:06)
[2019-01-02 05:08] LABS: ANION GAP 7 (5-19); BLOOD UREA NITROGEN 43 mg/dL (7-20); CALCIUM 8.1 mg/dL (8.4-10.2); CARBON DIOXIDE 17 mmol/L (22-30); CHLORIDE 116 mmol/L (98-107); GLUCOSE 93 mg/dL (75-110); POTASSIUM 5.8 mmol/L (3.6-5.0); SODIUM 140.1 mmol/L (137-145)
[2019-01-02] MEDS: ENOXAPARIN SODIUM INJ 30 MG/0.3 ML DISP.SYRIN SUBCUT SCH (09:54)
[2019-01-02] MEDS: LEVOFLOXACIN 250 MG/D5W RTU 250 MG/50 ML RTUPB IV SCH (09:54)
[2019-01-02 10:17] LABS: ARTERIAL BLOOD BASE EXCESS -13.1 mmol/L; ARTERIAL BLOOD H2CO3 1.14 mmol/L (1.05-1.35); ARTERIAL BLOOD HCO3 14.2 mmol/L (20-24); ARTERIAL BLOOD O2 SATURATION 88.6 % (94-98); ARTERIAL BLOOD PCO2 37.8 mmHg (35-45); ARTERIAL BLOOD PO2 66.3 mmHg (80-100); ARTERIAL BLOOD TOTAL CO2 15.4 mmol/L (21-25)
[2019-01-02 10:30] LABS: ARTERIAL BLOOD FIO2 5L; ARTERIAL BLOOD PH 7.19 (7.35-7.45)
[2019-01-02] MEDS ORDERED: DEXTROSE 5%-WATER 1000 ML 1,000 ML with SODIUM BICARBONATE 100 MEQ IV PRN ×2 (11:14)
[2019-01-02] MEDS ORDERED: CALCIUM GLUCONATE 1,000 MG in DEXTROSE 5%-WATER 50 ML IV ONE (11:15)
[2019-01-02] MEDS: NORMAL SALINE 1000 ML 1,000 ML IV PRN (12:10)
[2019-01-02] MEDS ORDERED: INSULIN REG, HUMAN 100 UNIT/ML 3 ML VIAL (PYX) IV ONE (12:30)
[2019-01-02] MEDS ORDERED: CALCIUM GLUCONATE 1000 MG/10 ML INJ IV ONE (12:30)
[2019-01-02] MEDS ORDERED: DEXTROSE 50%-WATER 25 GM/50 ML DISP.SYRIN IV ONE (12:30)
[2019-01-02] MEDS: DEXTROSE 5%-WATER 1000 ML 1,000 ML with SODIUM BICARBONATE 100 MEQ IV PRN ×4 (12:46→22:07)
[2019-01-02 18:20] LABS: ALANINE AMINOTRANSFERASE 55 U/L (9-52); ALBUMIN 2.9 g/dL (3.5-5.0); ALKALINE PHOSPHATASE 321 U/L (38-126); ANION GAP 9 (5-19); ASPARTATE AMINO TRANSFERASE 226 U/L (14-36); BILIRUBIN,DIRECT 0.5 mg/dL (0.0-0.4); BILIRUBIN,TOTAL 0.7 mg/dL (0.2-1.3); BLOOD UREA NITROGEN 42 mg/dL (7-20); CALCIUM 8.4 mg/dL (8.4-10.2); CARBON DIOXIDE 17 mmol/L (22-30); CHLORIDE 114 mmol/L (98-107); GLUCOSE 132 mg/dL (75-110); POTASSIUM 5.1 mmol/L (3.6-5.0); SODIUM 139.6 mmol/L (137-145); TOTAL PROTEIN 5.5 g/dL (6.3-8.2)
[2019-01-02 19:45] LABS: INTERNATIONAL RATION (INR) 1.27; PROTHROMBIN TIME 16.5 SEC (11.4-15.4)
[2019-01-02 19:46] LABS: PARTIAL THROMBOPLASTIN TIME 38.1 SEC (23.5-35.8)
--- NOTE | 2019-01-02 20:38 | PDOC PROGRESS REPORT ---
Subjective Progress Note for:: 01/02/19 Subjective:: Patient is well-known to me she has history of chronic obstructive lung disease about 2 weeks ago she had routine blood work, it demonstrated azotemia which was new ,because of the azotemia she was advised to have ultrasound of the kidney, ultrasound the kidney did not demonstrate any hydronephrosis but there was incidental finding of metastasis in the liver, she was supposed to come to the office today for discussion of the imaging results and also to obtain CT scan of the abdomen and pelvis ,but over the weekend she was taken to the emergency room by the daughter because she said she was so dehydrated and that there was self- neglect she lives by herself. In the emergency room she was evaluated, a chest x-ray was done ,it showed a right lower lobe mass that measured 5 cm in size, she also was found to have acute kidney injury with hyperkalemia, I saw her today on the floor she has acute oliguric kidney failure with hyperkalemia. I had a long discussion with patient's daughter and family ,they do not want any intervention not even a biopsy for tissue diagnosis, is more likely than not that this is metastatic lung disease she has metastases in the liver she has a mass in the lung history of COPD they want a care transition to Hospice.She is presently DNR, she is very acidotic with 7.1 pH, with hyperkalemia she is presently on bicarbonate infusion she also had extremely low blood pressure with sodium bicarbonate infusion blood pressure is improved some and she is making some urine when I saw her today on the floor she also had hematuria. Reason For Visit: ACUTE RENAL INJURY WITH HYPERKALEMIA,RIGHT LUNG Physical Exam Vital Signs: Temp Pulse Resp BP Pulse Ox 97.7 F 87 22 H 113/41 L 95 01/02/19 15:10 01/02/19 15:10 01/02/19 15:10 01/02/19 15:10 01/02/19 15:10 Intake & Output 01/01/19 01/02/19 01/03/19 06:59 06:59 06:59 Intake Total 3050 1022 2168 Output Total 100 190 150 Balance 2950 832 2018 Weight 55.915 kg General appearance: PRESENT: mild distress Eye exam: PRESENT: conjunctiva pale Respiratory exam: PRESENT: crackles Cardiovascular exam: PRESENT: +S1, +S2 GI/Abdominal exam: PRESENT: soft Neurological exam: PRESENT: alert Skin exam: PRESENT: dry, mottled, petechiae, skin tears Results Laboratory Results: 01/02/19 03:46 01/02/19 17:55 01/02/19 01/02/19 01/02/19 03:46 03:46 09:42 WBC 13.5 H RBC 3.83 Hgb 11.9 L Hct 36.6 MCV 96 MCH 31.0 MCHC 32.5 RDW 17.8 H Plt Count 208 Seg Neutrophils % 71.3 Lymphocytes % 13.4 Monocytes % 13.0 Eosinophils % 1.8 Basophils % 0.5 Absolute Neutrophils 9.6 H Absolute Lymphocytes 1.8 Absolute Monocytes 1.8 H Absolute Eosinophils 0.2 Absolute Basophils 0.1 Carbonic Acid 1.14 HCO3/H2CO3 Ratio 12:1 ABG pH 7.19 L* ABG pCO2 37.8 ABG pO2 66.3 L ABG HCO3 14.2 L ABG O2 Saturation 88.6 L ABG Base Excess -13.1 FiO2 5L Sodium 140.1 Potassium 5.8 H Chloride 116 H Carbon Dioxide 17 L Anion Gap 7 BUN 43 H Creatinine 2.43 H Est GFR ( Amer) 23 L Est GFR (Non-Af Amer) 19 L Glucose 93 Calcium 8.1 L Total Bilirubin AST ALT Alkaline Phosphatase Total Protein Albumin 01/02/19 17:55 WBC RBC Hgb Hct MCV MCH MCHC RDW Plt Count Seg Neutrophils % Lymphocytes % Monocytes % Eosinophils % Basophils % Absolute Neutrophils Absolute Lymphocytes Absolute Monocytes Absolute Eosinophils Absolute Basophils Carbonic Acid HCO3/H2CO3 Ratio ABG pH ABG pCO2 ABG pO2 ABG HCO3 ABG O2 Saturation ABG Base Excess FiO2 Sodium 139.6 Potassium 5.1 H Chloride 114 H Carbon Dioxide 17 L Anion Gap 9 BUN 42 H Creatinine 2.18 H Est GFR ( Amer) 26 L Est GFR (Non-Af Amer) 21 L Glucose 132 H Calcium 8.4 Total Bilirubin 0.7 AST 226 H ALT 55 H Alkaline Phosphatase 321 H Total Protein 5.5 L Albumin 2.9 L 12/31/18 12/31/18 12/31/18 11:52 11:52 15:10 Creatine Kinase 101 CK-MB (CK-2) 1.05 Troponin I 0.045 0.038 Impressions: Chest X-Ray 12/31/18 10:50 IMPRESSION: 5 cm probable mass in the right lung not seen previously. No definite acute opacities. Assessment & Plan - Diagnosis (1) Acute kidney injury Is this a current diagnosis for this admission?: Yes Plan: She has acute kidney injury this is most likely ATN from low blood pressure, it is oliguric kidney injury (2) Oliguria Is this a current diagnosis for this admission?: Yes (3) Metabolic acidosis Is this a current diagnosis for this admission?: Yes Plan: She has metabolic acidosis, she is started on bicarbonate infusion the metabolic acidosis is most likely from acute kidney injury (4) Metastatic lung cancer (metastasis from lung to other site) Qualifiers: Laterality: right Qualified Code(s): C34.91 - Malignant neoplasm of unspecified part of right bronchus or lung Is this a current diagnosis for this admission?: Yes Plan: She has a mass in the right lower lobe, family does not want a tissue diagnosis, there is metastasis in the liver suggesting stage IV lung cancer, she is not particularly a good candidate for treatment (5) Hematuria Qualifiers: Hematuria type: unspecified type Qualified Code(s): R31.9 - Hematuria, unspecified Is this a current diagnosis for this admission?: Yes (6) Hypotension Qualifiers: Hypotension type: other hypotension type Qualified Code(s): I95.89 - Other hypotension Is this a current diagnosis for this admission?: Yes Plan: She has low blood pressure partly due to metabolic acidosis she is started on sodium bicarbonate infusion (7) Hyperkalemia Is this a current diagnosis for this admission?: Yes Plan: The hyperkalemia is treated with calcium gluconate, 50% dextrose, insulin, - Plan Summary Plan Summary: Patient family acknowledges the gravity of patient disease they do not want any aggressive intervention, they want patient care transition to hospice, hospice consultation will be obtained for tomorrow, hopefully arrange for discharge by Wednesday afternoon,once patient is seen by hospice.
[2019-01-03] MEDS: MORPHINE SULFATE 10 MG/ML INJ IV PRN ×2 (01:15→19:11)
[2019-01-03] MEDS: DEXTROSE 5%-WATER 1000 ML 1,000 ML with SODIUM BICARBONATE 100 MEQ IV PRN ×4 (05:18→12:38)
[2019-01-03] MEDS: LANSOPRAZOLE 30 MG TAB.RAP.DR PO SCH (05:19)
[2019-01-03] MEDS: LEVOFLOXACIN 250 MG/D5W RTU 250 MG/50 ML RTUPB IV SCH (09:03)
[2019-01-03 14:49] LABS: ALANINE AMINOTRANSFERASE 61 U/L (9-52); ALBUMIN 2.6 g/dL (3.5-5.0); ALKALINE PHOSPHATASE 304 U/L (38-126); ANION GAP 9 (5-19); ASPARTATE AMINO TRANSFERASE 267 U/L (14-36); BILIRUBIN,DIRECT 0.4 mg/dL (0.0-0.4); BILIRUBIN,TOTAL 0.9 mg/dL (0.2-1.3); BLOOD UREA NITROGEN 40 mg/dL (7-20); CALCIUM 8.2 mg/dL (8.4-10.2); CARBON DIOXIDE 23 mmol/L (22-30); CHLORIDE 106 mmol/L (98-107); GLUCOSE 124 mg/dL (75-110); SODIUM 137.7 mmol/L (137-145); TOTAL PROTEIN 5.1 g/dL (6.3-8.2)
[2019-01-03] MEDS ORDERED: FUROSEMIDE INJ/PF 40 MG/4 ML SDV IV ONE (18:30)
--- NOTE | 2019-01-03 19:27 | PDOC DISCHARGE SUMMARY ---
General - Admit/Disc Date/PCP Admission Date/Primary Care Provider: 01/01/19 14:01 CONSUELO NICOLE MD Discharge Date: 01/04/19 - Discharge Diagnosis (1) Acute kidney injury Is this a current diagnosis for this admission?: Yes (2) Oliguria Is this a current diagnosis for this admission?: Yes (3) Metabolic acidosis Is this a current diagnosis for this admission?: Yes (4) Metastatic lung cancer (metastasis from lung to other site) Is this a current diagnosis for this admission?: Yes (5) Hematuria Is this a current diagnosis for this admission?: Yes (6) Hypotension Is this a current diagnosis for this admission?: Yes (7) Hyperkalemia Is this a current diagnosis for this admission?: Yes - Additional Information Resuscitation Status: Do Not Resuscitate Discharge Diet: Regular Home Medications: Gabapentin [Neurontin 100 mg Capsule] 100 mg PO DAILY 01/01/19 Gabapentin [Neurontin 100 mg Capsule] 200 mg PO QHS 01/01/19 Levocetirizine Dihydrochloride [Xyzal] 5 mg PO DAILY 01/01/19 Lorazepam [Ativan 0.5 mg Tablet] 0.5 mg PO BID 01/01/19 Sodium Bicarbonate [Sodium Bicarbonate 8.4% Inj 50 Meq/50Ml Syrin] 100 meq IV CONTINUOUS PRN disp.syrin 01/03/19 History of Present Illness History of Present Illness: SAVANA GRIMM is a 88 year old female,She was brought to the emergency room by her daughter because of poor intake, failure to thrive, dehydration Hospital Course Hospital Course: She was admitted for evaluation of failure to thrive, poor intake, in the [facility] room a chest x-ray was done and also blood work, chest x-ray showed right lower lobe mass that measure 5 cm in size.She had routine blood work outpatient that demonstrated elevated serum creatinine, ultrasound of the kidney was done as part of the evaluation for the azotemia, the kidney ultrasound did not show any hydronephrosis but there was incidental finding of liver metastasis, the results of the ultrasound was communicated to the daughter, she was supposed to come to the office on Wednesday to discuss the findings of the ultrasound but over the weekend patient's daughter took her to the emergency room because she looks . very sick so clearly it seems that she has right lung cancer with liver metastasis consistent with stage IV lung cancer. She also had acute kidney failure with severe metabolic acidosis, hyperkalemia, this was treated with intravenous sodium bicarbonate infusion, the hyperkalemia was treated with calcium gluconate, 50% dextrose, regular insulin for transcellular shift of potassium..There was associated hypotension Family does not want to pursue any intervention they have no interest in making tissue diagnosis with a biopsy this options were offered to the family but they declined the options they want the care transition to hospice according to her wishes apparently patient spouse, the father of her children , from cancer of the pancreas and he went through treatment which was a very painful experience for the family and the family does not want to put their mother through that experience again Physical Exam Vital Signs: Temp Pulse Resp BP Pulse Ox 98.0 F 92 20 133/44 H 92 01/03/19 15:15 01/03/19 15:15 01/03/19 15:15 01/03/19 15:15 01/03/19 15:15 Intake & Output 01/02/19 01/03/19 01/04/19 06:59 06:59 06:59 Intake Total 1022 4463 1923 Output Total 190 300 200 Balance 832 4163 1723 General appearance: PRESENT: no acute distress Eye exam: PRESENT: PERRLA Respiratory exam: PRESENT: rhonchi Cardiovascular exam: PRESENT: +S1, +S2 GI/Abdominal exam: PRESENT: soft Neurological exam: PRESENT: alert Results Laboratory Results: 01/02/19 03:46 01/03/19 14:15 01/03/19 14:15 Sodium 137.7 Potassium 5.0 Chloride 106 Carbon Dioxide 23 Anion Gap 9 BUN 40 H Creatinine 1.60 H Est GFR ( Amer) 37 L Est GFR (Non-Af Amer) 31 L Glucose 124 H Calcium 8.2 L Total Bilirubin 0.9 AST 267 H ALT 61 H Alkaline Phosphatase 304 H Total Protein 5.1 L Albumin 2.6 L 12/31/18 12/31/18 12/31/18 11:52 11:52 15:10 Creatine Kinase 101 CK-MB (CK-2) 1.05 Troponin I 0.045 0.038 Impressions: Chest X-Ray 12/31/18 10:50 IMPRESSION: 5 cm probable mass in the right lung not seen previously. No definite acute opacities. Qualifiers - * PATIENT BEING DISCHARGED WITH ANY OF THE FOLLOWING DIAGNOSIS: No Plan Discharge Plan: Overall prognosis is very poor, patient is discharged home with hospice
[2019-01-04] MEDS: LANSOPRAZOLE 30 MG TAB.RAP.DR PO SCH (05:52)
[2019-01-04] MEDS: MORPHINE SULFATE 10 MG/ML INJ IV PRN (09:18)
[2019-01-04] MEDS ORDERED: LEVOFLOXACIN 500 MG TABLET PO SCH (10:00)
[2019-01-04 12:29] VITALS: BP 170/64
== END 2019-01-04 15:08 | disposition hospice, home (50) | DRG 683 ==
LOC: ER 10:27 → EH 15:40 → 4N 17:11 → EEVIPCON 01-01 14:01 → OBSVTOIN 01-01 14:01
PROVIDERS: ADMIT Internal Medicine Geriatric Medicine; ATTEND Internal Medicine
PROC: 5A09457 Assistance with Respiratory Ventilation, 24-96 Consecutive Hours, Continuous Positive Airway Pressure (ICD-10-PCS; principal; 2019-01-02)
DX: N17.9 Acute kidney failure, unspecified (principal); E87.2 Acidosis; C34.91 Malignant neoplasm of unspecified part of right bronchus or lung; C78.7 Secondary malignant neoplasm of liver and intrahepatic bile duct; E87.5 Hyperkalemia; R31.9 Hematuria, unspecified; I95.9 Hypotension, unspecified; Z66 Do not resuscitate; R62.7 Adult failure to thrive; I12.9 Hypertensive chronic kidney disease with stage 1 through stage 4 chronic kidney disease, or unspecified chronic kidney disease; N18.9 Chronic kidney disease, unspecified; E78.00 Pure hypercholesterolemia, unspecified; I73.9 Peripheral vascular disease, unspecified; J44.9 Chronic obstructive pulmonary disease, unspecified; K21.9 Gastro-esophageal reflux disease without esophagitis; M19.90 Unspecified osteoarthritis, unspecified site; E86.0 Dehydration; I25.119 Atherosclerotic heart disease of native coronary artery with unspecified angina pectoris; I95.89 Other hypotension; R23.3 Spontaneous ecchymoses; Z60.2 Problems related to living alone; Z95.5 Presence of coronary angioplasty implant and graft; Z90.49 Acquired absence of other specified parts of digestive tract; Z87.891 Personal history of nicotine dependence; Z88.6 Allergy status to analgesic agent; Z88.8 Allergy status to other drugs, medicaments and biological substances
CPT/HCPCS: 36415; 36600; 51702; 71045; 71250; 80048; 80053; 81001; 82550; 82553; 82803; 83735; 84484; 85025; 85610; 85730; 87040; 93005; 93010; 94660; 96361; 96374; 96375; 99291; G0378; J0610; J1170; J1650; J1815; J1940; J1956; J2270; J2405; J3490; J7030; J7040; J7060